=== PATIENT | female | born 1975 | race African-American/Black ===

== ENCOUNTER 2016-11-29 19:36 | Emergency (ER) | payer OTHER ==
[2016-11-29 19:52] VITALS: BP 147/84; PULSE 98; TEMP 98.7; BMI 35.7
[2016-11-29] MEDS ORDERED: ALBUTEROL SO4 2.5/IPRATROPIUM 0.5 INH SOL 3 ML VIAL.NEB. NEB ONE ×2 (21:43→21:45)
[2016-11-29] MEDS ORDERED: ACETAMINOPHEN 500 MG TABLET (FP) PO ONE (21:43)
[2016-11-29] MEDS ORDERED: predniSONE 20 MG TABLET (UD) PO ONE (21:43)
--- NOTE | 2016-11-29 21:43 | PDOC ---
History of Present Illness - General Chief Complaint: Respiratory Stated Complaint: ASTHMA Time Seen by Provider: 11/29/16 21:28 History Source: Patient Exam Limitations: No Limitations - History of Present Illness Initial Comments: 11/29/16 21:44 This is a 41yo woman with PMH asthma who presents today with nasal congestion, body aches, sore throat, chills and wheezing. She states she woke up on 11/28 with these symptoms that have progressed over the past 48 hours. She reports having a dry productive cough with white sputum. She denies nausea, vomiting, chest pain or SOB. Pain P- "my joints" Q- achy R- no radiation S- 10/07 T- upon waking in AM 11/28 Tob- current some day smoker with ETOH ETOH- rarely Illicits- denies All- Iodine and shellfish Timing/Duration: reports: other (2 days) Past History - Past Medical History Allergies/Adverse Reactions: Allergies Allergy/AdvReac Type Severity Reaction Status Date / Time iodine [Iodine] Allergy Verified 11/29/16 19:52 seafood Allergy Intermediate Itching Uncoded 11/29/16 19:52 Home Medications: Ambulatory Orders Albuterol Sulfate Inhaler - [Ventolin Hfa Inhaler -] 1 - 2 inh PO Q4H 11/29/16 Prednisone [Prednisone 50 MG TABLETS] 50 mg PO DAILY #4 tablet 11/29/16 Asthma: Yes - Surgical History Cholecystectomy: Yes - Reproductive History Dysfunctional Uterine Bleeding: No Ectopic : No Polycystic Ovaries: No - Immunization History Immunization Up to Date: Yes - Psycho/Social/Smoking Cessation Hx Anxiety: No Suicidal Ideation: No Smoking Status: No Smoking History: Current some day smoker Number of Cigarettes Smoked Daily: 7 Information on smoking cessation initiated: No Hx Alcohol Use: Yes Drug/Substance Use Hx: No Review of Systems - Review of Systems Able to Perform ROS?: Yes Is the patient limited Latvian proficient: No Constitutional: Yes: See HPI HEENTM: Yes: See HPI Respiratory: Yes: Cough, Wheezing. No: Shortness of Breath Cardiac (ROS): No: Symptoms Reported ABD/GI: No: Symptoms Reported : No: Symptoms Reported Musculoskeletal: Yes: Joint Pain Integumentary: No: Symptoms Reported Neurological: No: Symptoms reported *Physical Exam - Vital Signs Last Vital Signs Temp Pulse Resp BP Pulse Ox 98.7 F 98 H 18 147/84 99 11/29/16 19:50 11/29/16 19:50 11/29/16 19:50 11/29/16 19:50 11/29/16 19:50 - Physical Exam General Appearance: Yes: Appropriately Dressed. No: Apparent Distress HEENT: positive: EOMI, ANGELA, Normal ENT Inspection, TMs Normal, Pharyngeal Erythema, Nasal Congestion, Rhinorrhea. negative: Muffled/Hoarse voice, Tonsillar Exudate, Sinus Tenderness, Excessive drooling, Thrush Neck: positive: Trachea midline, Supple. negative: Tender Respiratory/Chest: positive: Wheezing (expiratory over all nugent). negative: Chest Tender, Respiratory Distress, Accessory Muscle Use Cardiovascular: positive: Regular Rhythm, Regular Rate, S1, S2. negative: Edema , JVD, Murmur Musculoskeletal: positive: Normal Inspection. negative: CVA Tenderness Extremity: positive: Normal Capillary Refill Integumentary: positive: Normal Color, Dry, Warm Neurologic: positive: chronometer repairer II-XII NML intact, Fully Oriented, Alert, Normal Mood/ Affect, Normal Response, Motor Strength 5/5 Medical Decision Making - Medical Decision Making 11/29/16 21:48 A: This is a 41yo woman with PMH asthma who presents today with nasal congestion, body aches, sore throat, chills and wheezing. She states she woke up on 11/28 with these symptoms that have progressed over the past 48 hours. She reports having a dry productive cough with white sputum. She denies nausea, vomiting, chest pain or SOB. Expiuratory wheezes over all lung nugent. Speaking in full sentences. (-) drooling. No h/o ETT. Oropharynx with mild erythema to tonsillar pilars. No exudate present. No cervical lymphadenopathy. TM's concepcion with normal light reflex. No TTP over sinuses. P: Viral pharyngitis vs URI - duonebs - Tylenol 1g now - Prednisone 60mg now - reassess after nebs 11/29/16 22:33 Pt feels better and is requesting discharge. *DC/Admit/Observation/Transfer Diagnosis at time of Disposition: Upper respiratory infection Qualifiers: URI type: unspecified viral URI Qualified Code(s): J06.9 - Acute upper respiratory infection, unspecified; B97.89 - Other viral agents as the cause of diseases classified elsewhere - Discharge Dispostion Disposition: HOME Condition at time of disposition: Stable Admit: No - Prescriptions Prescriptions: Prednisone [Prednisone 50 MG TABLETS] 50 mg PO DAILY #4 tablet - Referrals Referrals: STAFF,NOT ON [Primary Care Provider] - - Patient Instructions Printed Discharge Instructions: DI for Viral Upper Respiratory Infection -- Adult - Post Discharge Activity Work/School Note: Back to Work
[2016-11-29] MEDS ORDERED: predniSONE 20 MG TABLET (UD) ONE (21:45)
[2016-11-29] MEDS ORDERED: ACETAMINOPHEN 500 MG TABLET (FP) ONE (21:45)
== END 2016-11-29 22:39 | disposition home or self-care (01) ==
LOC: JERFT 19:36
PROC: 3E0F7GC Introduction of Other Therapeutic Substance into Respiratory Tract, Via Natural or Artificial Opening (ICD-10-PCS; principal; 2016-11-29)
DX: J06.9 Acute upper respiratory infection, unspecified (principal); B97.89 Other viral agents as the cause of diseases classified elsewhere
CPT/HCPCS: 99281-25

== ENCOUNTER 2017-03-30 14:32 | Emergency (ER) | payer OTHER ==
[2017-03-30 14:45] VITALS: BP 133/76; PULSE 109; TEMP 98.2; BMI 35.9
--- NOTE | 2017-03-30 15:05 | PDOC ---
History of Present Illness - General Chief Complaint: Pain Stated Complaint: LEG/ARM SWELLING Time Seen by Provider: 03/30/17 15:05 History Source: Patient Exam Limitations: No Limitations - History of Present Illness Initial Comments: 03/30/17 15:05 CHIEF COMPLAINT: Left knee and calf pain which started . HISTORY OF PRESENT ILLNESS: Patient is a 41-year-old female, no significant medical history currently on no medication, presents emergency Department with pain to the left calf and pain to the left knee. " Area feels big and swollen" steady gait, no limping. Patient concerned she may have a clot in her left leg. Patient denies prolonged sitting, no use of hormonal therapy, no recent travel. Denies any injury however reports working on for more than 16 hours. REVIEW OF SYSTEMS: GENERAL: Afebrile, A&O x3 RESPIRATORY: No cough, wheezing, or hemoptysis. CARDIAC: No CP or SOB MUSCULOSKELETAL: Pain to [ right] [anterior] and [posterior] knee SKIN : No erythema, no edema, no bruising, no deformity. NEUROLOGICAL: Denies any numbness or tingling. PHYSICAL EXAM: GENERAL: The patient is awake, alert, and fully oriented, in no acute distress. HEAD: Normal with no signs of trauma. RESPIRATORY: Lungs clear bilaterally no rhonchi, rales, or wheezes CARDIAC: S1-S2 audible, no murmur rub or gallop EXTREMITIES: Good range of motion to left knee with suprapatellar pain, [no] fluid appreciated, no bulge sign. No pain to superior or inferior patella. Negative drop test. Negative posterior leg test. No joint laxity noted, no ecchymosis, no deformity, no abrasions ,no edema. +3 popliteal pulse. Pain to left calf patient states area is edematous however there is no erythema, area is soft mildly warm positive Homans MUSCULOSKELETAL: No spinal point tenderness. SKIN: Warm, Dry, normal turgor, no erythema, [no] edema no bruising. 03/30/17 15:15 Past History - Past Medical History Allergies/Adverse Reactions: Allergies Allergy/AdvReac Type Severity Reaction Status Date / Time iodine [Iodine] Allergy Verified 03/30/17 14:45 seafood Allergy Intermediate Itching Uncoded 03/30/17 14:45 Home Medications: Ambulatory Orders NK [No Known Home Medication] 03/30/17 Asthma: Yes COPD: No - Surgical History Cholecystectomy: Yes - Reproductive History Dysfunctional Uterine Bleeding: No Ectopic : No Polycystic Ovaries: No - Immunization History Immunization Up to Date: Yes - Suicide/Smoking/Psychosocial Hx Smoking Status: No Smoking History: Current every day smoker Number of Cigarettes Smoked Daily: 10 Information on smoking cessation initiated: No Hx Alcohol Use: Yes (SOCIAL WINE) Drug/Substance Use Hx: No Substance Use Type: None *Physical Exam - Vital Signs Last Vital Signs Temp Pulse Resp BP Pulse Ox 98.2 F 109 H 20 133/76 97 03/30/17 14:41 03/30/17 14:41 03/30/17 14:41 03/30/17 14:41 03/30/17 14:41 Medical Decision Making - Medical Decision Making 04/01/17 13:08 /P: Patient here for evaluation of what she feels is swelling to left arm and left knee, there is no swelling noted upon physical examination I sent patient to x-ray all were negative Motrin for pain, patient with probable joint effusion to left knee ultrasound of left calf is negative for DVT patient is with no risk factors. I have advised patient to follow-up with orthopedics, [facility] for pain. I discussed the physical exam findings, ancillary test results and final diagnoses with the patient. I answered all of the patient's questions. The patient was satisfied with the care received and felt comfortable with the discharge plan and treatment plan. The patient will call to arrange follow-up and will return to the Emergency Department with any new, persistent or worsening symptoms. *DC/Admit/Observation/Transfer Diagnosis at time of Disposition: Leg pain Qualifiers: Laterality: left Qualified Code(s): M79.605 - Pain in left leg - Discharge Dispostion Disposition: HOME Condition at time of disposition: Stable Admit: No - Referrals Referrals: Víctor Pulliam MD [Staff Physician] - - Patient Instructions Additional Instructions: Motrin for pain. Follow up with ortho if pain persists. - Post Discharge Activity Forms/Work/School Notes: Back to Work
== END 2017-03-30 17:26 | disposition home or self-care (01) ==
LOC: JERFT 14:32
DX: M79.605 Pain in left leg (principal)
CPT/HCPCS: 73562-TC-LT; 84703; 93971-TC; 99281-25

== ENCOUNTER 2017-04-22 16:33 | Emergency (ER) | payer OTHER ==
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
[2017-04-22 16:37] VITALS: BP 124/78; PULSE 90; TEMP 97.9; BMI 33.0
[2017-04-22] MEDS ORDERED: KETOROLAC TROMETHAMINE 60 MG/2 ML VIAL IM ONE (17:40)
[2017-04-22] MEDS ORDERED: CYCLOBENZAPRINE HCL 10 MG TABLET (FP) PO ONE (17:40)
[2017-04-22] MEDS ORDERED: KETOROLAC TROMETHAMINE 60 MG/2 ML VIAL ONE (17:46)
[2017-04-22] MEDS ORDERED: CYCLOBENZAPRINE HCL 10 MG TABLET (FP) ONE (17:46)
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
== END 2017-04-22 18:15 | disposition home or self-care (01) ==
LOC: JERFT 16:33
PROC: 3E0233Z Introduction of Anti-inflammatory into Muscle, Percutaneous Approach (ICD-10-PCS; principal; 2017-04-22)
DX: S16.1XXA Strain of muscle, fascia and tendon at neck level, initial encounter (principal); V49.59XA Passenger injured in collision with other motor vehicles in traffic accident, initial encounter; Y92.488 Other paved roadways as the place of occurrence of the external cause; Y93.89 Activity, other specified; Y99.8 Other external cause status
CPT/HCPCS: 99281-25

== ENCOUNTER 2018-01-30 15:32 | Inpatient (IN) | payer OTHER ==
--- NOTE | 2018-01-30 16:34 | PDOC ---
Rapid Medical Evaluation Chief Complaint: Wound Time Seen by Provider: 01/30/18 16:30 Medical Evaluation: Allergies Allergy/AdvReac Type Severity Reaction Status Date / Time iodine [Iodine] Allergy Verified 04/22/17 16:38 shellfish derived Allergy Verified 06/27/17 02:32 seafood Allergy Intermediate Itching Uncoded 04/22/17 16:38 01/30/18 16:31 c/o abscess to left side of chin x 2 days. 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 patient reports that she removed a hair from chin prior to the swelling Pe: patient alert ox3. swelling abscess to left chin A: abscess P: patient to the ER further management 01/30/18 16:34 Discharge Disposition - Diagnosis Abscess - Referrals - Patient Instructions - Post Discharge Activity
[2018-01-30 17:28] LABS: BASO % 0.6 % (0-2.0); EOS % 3.7 % (0-4.5); HEMATOCRIT 40.1 % (32.4-45.2); HEMOGLOBIN 13.6 GM/dL (10.7-15.3); MCH 27.4 pg (25.7-33.7); MEAN CELL VOLUME 80.7 fl (80-96); MONO % 4.7 % (3.8-10.2); PLATELET COUNT 195 K/MM3 (134-434); RBC 4.98 M/mm3 (3.60-5.2); RDW 14.8 % (11.6-15.6)
--- NOTE | 2018-01-30 17:50 | PDOC ---
Attending Attestation - HPI HPI: 01/30/18 18:45 The patient is a 43-year-old female with past medical history significant for asthma was sent to the emergency department by [employer] for an evaluation for an abscess. The patient presents with an abscess to the L. mandibular region that presented about 24 hours prior, after plucking a hair from the area. - Medical Decision Making 01/30/18 18:45 Documentation prepared by Conchis Maldonado, acting as medical anthropologist for Sampson Aguirre MD. <Conchis Maldonado - Last Filed: 01/30/18 18:45> - Resident Resident Name: Yaya Horn - ED Attending Attestation I have performed the following: I have examined & evaluated the patient, The case was reviewed & discussed with the resident, I agree w/resident's findings & plan, Exceptions are as noted - Physicial Exam PE: 01/30/18 19:25 Patient is awake and alert, well-appearing, afebrile, in no distress Normocephalic, atraumatic PERRLA, EOMI No dental malocclusion, no evidence of Rickie's angina; +4-5 cm area of erythema and induration to the left submental space with a central nidus, actively draining purulent material Neck is supple, there is no goiter; there is no cervical lymphadenopathy CTA RRR - Medical Decision Making 01/30/18 19:29 Patient is a 42-year-old female who presents with signs and symptoms of acute facial cellulitis with an abscess. Will obtain CT of facial bones to evaluate for depth of involvement, we'll cover with IV clindamycin. Will admit for ENT incision and drainage. <Sampson Aguirre - Last Filed: 01/30/18 19:30>
--- NOTE | 2018-01-30 18:07 | PDOC ---
History of Present Illness - General Chief Complaint: Wound Stated Complaint: SENT BY PCP Time Seen by Provider: 01/30/18 16:30 History Source: Patient Exam Limitations: No Limitations - History of Present Illness Initial Comments: 01/30/18 17:45 Patient is a 42F with history of asthma and multiple abscesses (involvement under breast and armpit) here today complaining of an abscess to her neck. 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 Patient denies fevers, chills, nausea, vomiting. Patient states that her voice sounds different to her. Denies shortness of breath and difficulty breathing. Denies tooth and mouth pain. Denies headache. Past History - Past Medical History Allergies/Adverse Reactions: Allergies Allergy/AdvReac Type Severity Reaction Status Date / Time iodine [Iodine] Allergy Verified 01/30/18 16:44 shellfish derived Allergy Verified 01/30/18 16:44 seafood Allergy Intermediate Itching Uncoded 01/30/18 16:44 Home Medications: Ambulatory Orders Albuterol Sulfate [Proventil HFA Inhaler -] 1 - 2 inh PO QID PRN 01/30/18 Asthma: Yes COPD: No - Surgical History Cholecystectomy: Yes - Reproductive History Dysfunctional Uterine Bleeding: No Ectopic : No Polycystic Ovaries: No - Immunization History Immunization Up to Date: Yes - Suicide/Smoking/Psychosocial Hx Smoking Status: No Smoking History: Current some day smoker Number of Cigarettes Smoked Daily: 2 Information on smoking cessation initiated: No 'Breaking Loose' booklet given: 04/22/17 Hx Alcohol Use: No Drug/Substance Use Hx: No Substance Use Type: None Review of Systems - Review of Systems Comments:: 01/30/18 18:22 GENERAL/CONSTITUTIONAL: No fever or chills. No weakness. HEAD, EYES, EARS, NOSE AND THROAT: No change in vision. No sore throat. CARDIOVASCULAR: No chest pain or shortness of breath RESPIRATORY: No cough, wheezing, or hemoptysis. GASTROINTESTINAL: No nausea, vomiting, diarrhea or constipation. GENITOURINARY: No dysuria, frequency, or change in urination. MUSCULOSKELETAL: No joint or muscle swelling or pain. No neck or back pain. SKIN: No rash NEUROLOGIC: No headache, vertigo, loss of consciousness, or change in strength/ sensation. ENDOCRINE: No increased thirst. No abnormal weight change HEMATOLOGIC/LYMPHATIC: No anemia, easy bleeding, or history of blood clots. ALLERGIC/IMMUNOLOGIC: No hives or skin allergy. *Physical Exam - Vital Signs Last Vital Signs Temp Pulse Resp BP Pulse Ox 98.2 F 94 H 18 121/67 99 01/30/18 16:33 01/30/18 16:33 01/30/18 16:33 01/30/18 16:33 01/30/18 16:33 - Physical Exam Comments: 01/30/18 18:23 GENERAL: Awake, alert, and fully oriented, in no acute distress HEAD: No signs of trauma, normocephalic, atraumatic EYES: PERRLA, EOMI, sclera anicteric, conjunctiva clear ENT: Auricles normal inspection, hearing grossly normal, nares patent, oropharynx clear without exudates. Moist mucosa. 6x3cm area of fluctuance with surrounding erythema, pus discharge. NECK: Normal ROM, supple, no lymphadenopathy, JVD, or masses LUNGS: No distress, speaks full sentences, clear to auscultation bilaterally HEART: Regular rate and rhythm, normal S1 and S2, no murmurs, rubs or gallops, peripheral pulses normal and equal bilaterally. ABDOMEN: Soft, nontender, normoactive bowel sounds. No guarding, no rebound. No masses EXTREMITIES: Normal inspection, Normal range of motion, no edema. No clubbing or cyanosis. NEUROLOGICAL: Cranial nerves II through XII grossly intact. Normal speech, normal gait, no focal sensorimotor deficits SKIN: Warm, Dry, normal turgor, no rashes or lesions noted. ED Treatment Course - LABORATORY CBC & Chemistry Diagram: 01/30/18 17:10 01/30/18 17:10 - ADDITIONAL ORDERS Additional order review: 01/30/18 17:10 RBC 4.98 MCV 80.7 MCHC 34.0 RDW 14.8 MPV 9.0 Neutrophils % 61.0 Lymphocytes % 30.0 Monocytes % 4.7 Eosinophils % 3.7 Basophils % 0.6 - RADIOLOGY Radiology Studies Ordered: Category Date Time Status SOFT TISSUE NECK CT WITH CONTR [CT] Stat CT Scan 01/30/18 17:36 Ordered Medical Decision Making - Medical Decision Making 01/30/18 18:25 Patient is 42F with history of asthma and multiple abscesses here today with abscess to neck. Vitals normal and stable. Will do CT to establish extent. Airway currently intact. Will do cbc, cmp, serum preg, blood culture, wound culture. Will cover with clinda, likely admit. 01/30/18 18:33 CBC, CMP reassuring. Preg pending. 01/30/18 19:36 Patient's iodine allergy is to betadine, no history of a reaction to CT contrast. Safe for CT contrast. 01/30/18 19:56 Laboratory Tests 01/30/18 01/30/18 01/30/18 17:10 17:10 17:58 WBC 10.0 Hgb 13.6 Plt Count 195 BUN 8 Creatinine 0.8 Serum , Qual Negative CBC normal. CMP reassuring. Serum . 01/30/18 21:45 CT shows 1.5cm superficial likely abscess with reactive adjacent lymph nodes. Call out to ENT. Will admit to obs until ENT eval. Do not feel comfortable cutting into neck due to adjacent structures. 01/30/18 21:58 D/W Dr Pulido, will see pt in clinic tomorrow at 9am at [address] as specialized tools are available in clinic. Will admit for IV antibiotics and observation. 01/30/18 22:[address] Yang to Dr Gar service. *DC/Admit/Observation/Transfer Diagnosis at time of Disposition: Neck abscess - Discharge Dispostion Condition at time of disposition: Stable Decision to Admit order: Yes - Referrals Referrals: Jerson Lowery MD [Primary Care Provider] - - Patient Instructions - Post Discharge Activity
[2018-01-30 18:14] LABS: ALBUMIN 3.6 g/dl (3.4-5.0); ALK PHOS 85 U/L (45-117); ANION GAP 8 MMOL/L (8-16); BILIRUBIN,TOTAL 0.3 mg/dL (0.2-1); BLOOD UREA NITROGEN 8 mg/dL (7-18); CALCIUM 8.8 mg/dL (8.5-10.1); CHLORIDE 105 mmol/L (98-107); CO2 26 mmol/L (21-32); CREATININE 0.8 mg/dL (0.55-1.3); GLUCOSE,RANDOM 129 mg/dL (74-106); POTASSIUM 3.5 mmol/L (3.5-5.1); SGOT/AST 8 U/L (15-37); SGPT/ALT 15 U/L (13-61); SODIUM 140 mmol/L (136-145); TOT PROT 6.8 g/dl (6.4-8.2)
[2018-01-30] MEDS ORDERED: CLINDAMYCIN 600MG PREMIX IVPB 600 MG/50 ML BAG IVPB ONE ×2 (18:18→18:20)
--- NOTE | 2018-01-30 22:36 | PN ---
Teaching Attending Note Name of Resident: Yohan Yang ATTENDING PHYSICIAN STATEMENT I saw and evaluated the patient. I reviewed the resident's note and discussed the case with the resident. I agree with the resident's findings and plan as documented. SUBJECTIVE: Seen and examined with resident; please see their note for further historical details. This is a patient with a PMH of DM, Asthma, Smoker, R-breast abscess ( 2016, grew EF, corynebacterium). She has a 2 day history of a painful 1x1cm abscess on her chin that is growing and painful with purulent drainage. Looks like her prior abscesses. She is tolerating the pain. She was worried as it was growing and draining so she went to the ER. Non-septic appearing, CT results noted. She was incidentally found to have an enlarged thyroid on US; no history of thyroid issues. She endorses 1 month of strange sensation when swallowing that she says makes it somewhat difficult to do meals, but she hasn' t had any alysia dyshagia limiting PO intake or odynophagia. 10 sys ROS done and is negative aside from HPI PMH and PSH per chart FH asked and noncontributory Social history OBJECTIVE: VSS, labs and imaging reviewed Pleasant demeanor, NAD, resting comfortably in bed. Doesn't appear septic. 1x1cm abscess with some purulent drainage on her chin with surrounding minor cellulitis. Fluctuant. No other facial abscess felt Trachea midline, some minor LN, full thyroid RRR s1/2 no mgr Lungs CTAB with sym expansion CN2-12 grossly intact without any FND CT shows 1.3cm subcutaneous abscess with luminal debris in the L-submental region with incidental finding of thyromegaly No WBC, chemistry normal, coags normal, RPR negative, negative HCG. ESR/CRP pending ASSESSMENT AND PLAN: Ms. Hernandez is a 42 y/o female presenting with L-submental abscess; she will be placed on empiric tx and require likely an I&D. 1) L-Submental Abscess -Placing on empiric vancomycin with pharmacy to dose; monitor renal function and consult ID per policy. Will reach out to Dr. Lerner. -Monitor for spread vs. improvement -Consult surgical services for drainage. -Follow wound and blood cultures, check ESR/CRP. The organisms she grew out 2 years ago are covered by this, unsure if they would be potentially involved now. 2) Thyromegaly -Incidental finding on CT; no dysphagia or dysphonia and is essentially asymptomatic -Will check TSH; US recommended as outpatient. 3) Diabetes Mellitus -SSI while inpatient, check A1c 4) H/O Asthma -Not in exacerbation 5) 1 month of dysphagia -Check barium swallow; likely 2/2 the thyroid abnormalities (the abscess only present for 2 days) Full Code
[2018-01-30] MEDS ORDERED: VANCOMYCIN 1,000 MG in DEXTROSE 5%-WATER - 250 ML IVPB SCH (22:45)
--- NOTE | 2018-01-30 22:48 | HP ---
CHIEF COMPLAINT: facial cellulites with abscess PCP:Dr.LeeMorgan hilliard HISTORY OF PRESENT ILLNESS: 42 year old obese female with pmx of pre diabetic , multiple abscess , presented to Ed with 2 days history of facial sub mandibular nodule юлия size , worsen last night and extended , associated with erythema and tenderness was sent to Ed by her center line cutter operator . pt had similar symptoms in the past beneath her breast that was treated with abx but dont remeber the name. pt denies any fever, chills, N/V/D/C but report some difficulty in swallowing and has been trying to loose weight. pt had her flue shot last . and she had flue symptoms begining of December ROS: denies any chest pain , palpitation , sob , abdominal pain or urinary symptoms. ER course was notable for: (1)cbc, bmp (2)US soft tissue (3)Abx Recent Travel: denies PAST MEDICAL HISTORY: none PAST SURGICAL HISTORY: Tubal ligation, Cholecystectomy Social History: Smokin/2 PPD 15 years Alcohol:socially Drugs: denies Family History: Allergies iodine [Iodine] Allergy (Verified 01/30/18 16:44) shellfish derived Allergy (Verified 01/30/18 16:44) seafood Allergy (Intermediate, Uncoded 01/30/18 16:44) Itching HOME MEDICATIONS: Home Medications Medication Instructions Recorded Albuterol Sulfate [Proventil HFA 1 - 2 inh PO QID PRN 01/30/18 Inhaler -] REVIEW OF SYSTEMS denies any other symptoms PHYSICAL EXAMINATION Vital Signs - 24 hr 01/30/18 01/30/18 01/30/18 16:33 20:30 21:43 Temperature 98.2 F 98.3 F 98.1 F Pulse Rate 94 H Pulse Rate [ 84 78 Right Radial] Respiratory 18 18 17 Rate Blood Pressure 121/67 Blood Pressure 130/78 137/78 [Left Arm] O2 Sat by Pulse 99 98 98 Oximetry (%) GENERAL:AAOx3 in NAD HEAD: Normal with no signs of trauma. EYES: ELSA, EOMI , sclera anicteric, conjunctiva clear. EARS, NOSE, THROAT: Ears normal, nares patent, oropharynx clear without exudates. Moist mucous membranes. NECK: Normal range of motion, supple , sub mandibular abscess 2x2 cm with erythema LUNGS:CTA B/L ,No wheezes, and no crackles. HEART:RRR, normal S1 and S2 without murmur, rub or gallop. ABDOMEN:Obese, Soft,ND, NT , normoactive bowel sounds, no guarding, no rebound , no masses. LOWER EXTREMITIES: 2+ pulses, warm, well-perfused. No calf tenderness. No peripheral edema. NEUROLOGICAL: no focal deficit , Normal speech. PSYCHIATRIC: Cooperative. Good eye contact. Appropriate mood and affect. SKIN: Warm, dry, normal turgor, Laboratory Results - last 24 hr 01/30/18 01/30/18 01/30/18 17:10 17:10 17:58 WBC 10.0 RBC 4.98 Hgb 13.6 Hct 40.1 MCV 80.7 MCH 27.4 MCHC 34.0 RDW 14.8 Plt Count 195 MPV 9.0 Absolute Neuts (auto) 6.1 Neutrophils % 61.0 Lymphocytes % 30.0 Monocytes % 4.7 Eosinophils % 3.7 Basophils % 0.6 Nucleated RBC % 0 Sodium 140 Potassium 3.5 Chloride 105 Carbon Dioxide 26 Anion Gap 8 BUN 8 Creatinine 0.8 Creat Clearance w eGFR > 60 Random Glucose 129 H Calcium 8.8 Total Bilirubin 0.3 AST 8 L ALT 15 Alkaline Phosphatase 85 Total Protein 6.8 Albumin 3.6 Serum , Qual Negative CBC, BMP 01/30/18 17:10 01/30/18 17:10 ASSESSMENT/PLAN: 42 year old male with no pmhx was sent to the ED by her center line cutter operator due to worsening cellulitis and facial abscess. #Facial cellulitis with an Abscess submandibular * worsening in size and tenderness * Clindamycine in ED , will cont with vanco * Hgb A1c * TSH * Blood cx * wound cx * ESR WNL , CRP elevated * cbc . bmp in AM * surgery consult * ID consult Dr Fowler * MRSA screen #Thyromegaly * Incidental finding on CT; no dysphagia or dysphonia and is essentially asymptomatic * Will check TSH; US recommended as outpatient. #pre Diabetes * ISS while inpatient, * check A1c # Astma , stable no need for treatement # dysphagia for solid might be due thyromegaly * speech and swallow and barium swallow # FEN * F: no standing fluids * E: WNL * N: regular diet # proph * DVts : SCds * GI: No proph is needed. # Dispo : * admit to observation Visit type - Emergency Visit Emergency Visit: Yes ED Registration Date: 01/30/18 Care time: The patient presented to the Emergency Department on the above date and was hospitalized for further evaluation of their emergent condition. - New Patient This patient is new to me today: Yes Date on this admission: 01/30/18 - Critical Care Critical Care patient: No
[2018-01-30] MEDS ORDERED: VANCOMYCIN 1 GRAM (PRE-DOCKED) 1,000 MG/250 ML BAG IVPB ONE ×2 (23:00→23:09)
[2018-01-31 02:52] VITALS: BMI 35.4
[2018-01-31] MEDS: INSULIN SLIDING SCALE (NOVOLOG) 1 VIAL SQ SCH ×4 (06:14→23:21)
[2018-01-31 08:01] LABS: BASO % 0.4 % (0-2.0); EOS % 4.4 % (0-4.5); HEMOGLOBIN 13.2 GM/dL (10.7-15.3); LYMPH % 37.6 % (8-40); MCH 27.5 pg (25.7-33.7); MCHC 33.8 g/dl (32.0-36.0); MEAN CELL VOLUME 81.2 fl (80-96); MEAN PLT VOLUME 9.4 fl (7.5-11.1); MONO % 4.9 % (3.8-10.2); NEUT % 52.7 % (42.8-82.8); PLATELET COUNT 178 K/MM3 (134-434); RBC 4.81 M/mm3 (3.60-5.2); RDW 14.6 % (11.6-15.6); WHITE BLOOD COUNT 7.7 K/mm3 (4.0-10.0)
--- NOTE | 2018-01-31 08:09 | PN ---
Progress Note (short form) - Note Progress Note: c/o pain and swelling on the chin. plucked a hair a few days ago then started feeling the pain and swelling. denies Cp, SOB, fever, chills, night sweats, N/v/ C/D. has had a breast abscess in the past which was drained. did have a mammogram which she reports as negative also reports difficulty swallowing for the past month. states has a fullness sensation. reports eating less but states she has been working 3 jobs and under a lot of stress. it is not related to liquid vs solids, hots vs colds. able to swallow and has no assoc weight loss. Current Medications Generic Name Dose Route Start Last Admin Trade Name Freq PRN Reason Stop Dose Admin Vancomycin HCl 1,000 mg/ 250 mls @ 166.667 mls/hr 01/30/18 22:45 Dextrose IVPB Q12H DARINEL Protocol Insulin Aspart 1 vial 01/31/18 07:00 01/31/18 06:14 Novolog Vial Sliding Scale - SQ Not Given ACHS DARINEL Protocol Last Vital Signs Temp Pulse Resp BP Pulse Ox 98.2 F 67 17 121/68 98 01/31/18 02:48 01/31/18 02:48 01/31/18 02:57 01/31/18 02:48 01/31/18 02:57 General NAD HEENT L submental 1cm abscess with copious yellow purulent drainage. drains with pressure. enlarged thyroid, midline, that moves on degluttation. no nodules appreciated, not tender. no LN appreciated, no oral plaques, no oral ulcers or lesions. mallenpati 4 Breast firmness appreciated under the L breast CV S1 S2 RRR no murmur/rub/gallop Lungs CTA B/L no wheezing/rales/rhonchi CBCD WBC 7.7 K/mm3 (4.0-10.0) 01/31/18 06:40 RBC 4.81 M/mm3 (3.60-5.2) 01/31/18 06:40 Hgb 13.2 GM/dL (10.7-15.3) 01/31/18 06:40 Hct 39.0 % (32.4-45.2) 01/31/18 06:40 MCV 81.2 fl (80-96) 01/31/18 06:40 MCHC 33.8 g/dl (32.0-36.0) 01/31/18 06:40 RDW 14.6 % (11.6-15.6) 01/31/18 06:40 Plt Count 178 K/MM3 (134-434) 01/31/18 06:40 MPV 9.4 fl (7.5-11.1) 01/31/18 06:40 CMP Sodium 142 mmol/L (136-145) 01/31/18 06:40 Potassium 3.7 mmol/L (3.5-5.1) 01/31/18 06:40 Chloride 106 mmol/L (98-107) 01/31/18 06:40 Carbon Dioxide 25 mmol/L (21-32) 01/31/18 06:40 Anion Gap 10 MMOL/L (8-16) 01/31/18 06:40 BUN 8 mg/dL (7-18) 01/31/18 06:40 Creatinine 0.7 mg/dL (0.55-1.3) 01/31/18 06:40 Creat Clearance w eGFR > 60 (>60) 01/31/18 06:40 Random Glucose 88 mg/dL (74-106) 01/31/18 06:40 Calcium 8.2 mg/dL (8.5-10.1) L 01/31/18 06:40 Total Bilirubin 0.4 mg/dL (0.2-1) 01/31/18 06:40 AST 6 U/L (15-37) L 01/31/18 06:40 ALT 13 U/L (13-61) 01/31/18 06:40 Alkaline Phosphatase 78 U/L (45-117) 01/31/18 06:40 Total Protein 6.2 g/dl (6.4-8.2) L 01/31/18 06:40 Albumin 3.3 g/dl (3.4-5.0) L 01/31/18 06:40 A/P 42yo F with PMH of Asthma, Smoker, R-breast abscess (2016, grew EF, corynebacterium) presented to the ER with chin abscess for 2 days 1. Submental abscess- seen on CT with 1.3cm abscess. will need to be drained. started on vanco in the ER. ID and Surgery consulted. will request surgeon to evaluate breast as well. f/u Cx 2. Enlarged thyroid- TSH WNL. will need to have soft tissue u/s as outpatient and follow up with endocrine for further workup as outpatient. 3. fullness on swallowing- not painful. do not believe this is related to abscess as it preceeded its formation. could be related to enlarged thyroid that needs to be further investigated as outpatient. if believed not to be related could benefit from esophogram for esophageal dysmotility issues 4. charts documents DM however A1c 6. would benefit from dietary and lifestyle modifications. will d/c BGM 5. asthma- stable 6. DVT ppx- EAM 7. spoke with present at bedside. all questions answered. verbalized understanding of plan. expressed desire of going home today. informed her it would be preferred to monitor for cx report however will wait for surgeons evaluation. Visit type - Emergency Visit Emergency Visit: Yes ED Registration Date: 01/30/18 Care time: The patient presented to the Emergency Department on the above date and was hospitalized for further evaluation of their emergent condition. - New Patient This patient is new to me today: Yes Date on this admission: 01/31/18 - Critical Care Critical Care patient: No - Discharge Referral Referred to [facility] Med P.C.: No
[2018-01-31 08:42] LABS: ALBUMIN 3.3 g/dl (3.4-5.0); ALK PHOS 78 U/L (45-117); ANION GAP 10 MMOL/L (8-16); BILIRUBIN,TOTAL 0.4 mg/dL (0.2-1); BLOOD UREA NITROGEN 8 mg/dL (7-18); CALCIUM 8.2 mg/dL (8.5-10.1); CHLORIDE 106 mmol/L (98-107); CO2 25 mmol/L (21-32); CREATININE 0.7 mg/dL (0.55-1.3); GLUCOSE,RANDOM 88 mg/dL (74-106); MAGNESIUM 2.2 mg/dL (1.8-2.4); POTASSIUM 3.7 mmol/L (3.5-5.1); SGOT/AST 6 U/L (15-37); SGPT/ALT 13 U/L (13-61); SODIUM 142 mmol/L (136-145); TOT PROT 6.2 g/dl (6.4-8.2)
[2018-01-31 08:56] LABS: INR 1.24 (0.83-1.09); PROTHROMBIN TIME (PATIENT) 14.7 SEC (9.7-13.0)
--- NOTE | 2018-01-31 09:23 | CON.ID ---
Consult Consult Specialty:: infectious diseases Referred by:: Reason for Consultation:: abscess of the chin under left side - History of Present Illness Chief Complaint: swelling left side of the face. abscess under the chin History of Present Illness: The patient is a 43-year-old female with past medical history significant for asthma ,obesity admitted to the hospital because of abscess under the left mandible . According to the patient she plucked her hair and in a day developed a small swelling and abscess which increased and then she mentions that it went below on her neck,the swelling did not travel her face patient also mentions that she gets swelling under her breasts ,currently no swelling under the breast - History Source History Provided By: Patient Limitations to Obtaining History: No Limitations - Past Medical History ...LMP: 01/27/18 ...: No - Alcohol/Substance Use Hx Alcohol Use: Yes (socially) - Smoking History Smoking history: Current every day smoker Have you smoked in the past 12 months: Yes Aproximately how many cigarettes per day: 10 Home Medications - Allergies Allergies/Adverse Reactions: Allergies Allergy/AdvReac Type Severity Reaction Status Date / Time iodine [Iodine] Allergy Verified 01/30/18 16:44 shellfish derived Allergy Verified 01/30/18 16:44 seafood Allergy Intermediate Itching Uncoded 01/30/18 16:44 - Home Medications Home Medications: Ambulatory Orders Albuterol Sulfate [Proventil HFA Inhaler -] 1 - 2 inh PO QID PRN 01/30/18 Review of Systems - Review of Systems Constitutional: reports: No Symptoms Eyes: reports: No Symptoms HENT: reports: No Symptoms Neck: reports: Other Cardiovascular: reports: No Symptoms Respiratory: reports: No Symptoms Gastrointestinal: reports: No Symptoms Genitourinary: reports: No Symptoms Musculoskeletal: reports: No Symptoms Integumentary: reports: Erythema Neurological: reports: No Symptoms Endocrine: reports: No Symptoms Hematology/Lymphatic: reports: No Symptoms Psychiatric: reports: No Symptoms Physical Exam Vital Signs: Vital Signs Temperature 98.2 F 01/31/18 02:48 Pulse Rate 67 01/31/18 02:48 Respiratory Rate 17 01/31/18 02:57 Blood Pressure 121/68 01/31/18 02:48 O2 Sat by Pulse Oximetry (%) 98 01/31/18 02:57 Constitutional: Yes: Well Nourished, No Distress, Calm, Obese HENT: Yes: Atraumatic, Other (abscess below left mandible) Neck: Yes: Supple, Other (probably goitre) Cardiovascular: Yes: Regular Rate and Rhythm Respiratory: Yes: Regular, CTA Bilaterally Gastrointestinal: Yes: Normal Bowel Sounds, Soft Musculoskeletal: Yes: WNL Extremities: Yes: WNL Wound/Incision: Yes: Dressing Removed, Other (wound and abscess noted) Neurological: Yes: Alert, Oriented Psychiatric: Yes: Alert, Oriented Labs: CBC, BMP 01/31/18 06:40 01/31/18 06:40 Imaging - Results Cat Scan: Report Reviewed, Image Reviewed Assessment/Plan this patient coming with abscess below the left mandible ,now with slough still present patient is currently stable cx have been send and are pending looking at the abscess the abscess looks like it is superficial .patient was given abx abscess --face left sub mental region obesity h/o of breast abscess plan i will start patient on combination of oral abx surgery to debride the wound wound care rest as per the team await for cx reports
--- NOTE | 2018-01-31 10:27 | CONSULT ---
- Consultation REQUESTING PROVIDER: Ayesha DARBY CONSULT REQUEST: We have been asked to surgically evaluate this patient for evaluation and management of an ABSSSI of the face PCP:Jackie Mustafa HISTORY OF PRESENT ILLNESS: 42 y/o A/A/F seen by a programs manager yesterday for pain and swelling and d/c of an area of the left chin; she was told to go to the ER for further evaluation; she was seen and evaluated in the ER and admitted ; the area in question was traumatized by the patient plucking out a hair from the area; she has a h/o of other ABSSSI's in the past. PMHx: none PSHx: none Home Medications Medication Instructions Recorded Albuterol Sulfate [Proventil HFA 1 - 2 inh PO QID PRN 01/30/18 Inhaler -] Allergies Allergy/AdvReac Type Severity Reaction Status Date / Time iodine [Iodine] Allergy Verified 01/30/18 16:44 shellfish derived Allergy Verified 01/30/18 16:44 seafood Allergy Intermediate Itching Uncoded 01/30/18 16:44 REVIEW OF SYSTEMS: CONSTITUTIONAL: Absent: fever, chills, diaphoresis, generalized weakness, malaise, loss of appetite, weight change CARDIOVASCULAR: Absent: chest pain, syncope, palpitations, irregular heart rate, lightheadedness , peripheral edema RESPIRATORY: Absent: cough, shortness of breath, dyspnea with exertion, wheezing, stridor, hemoptysis GASTROINTESTINAL: Absent: abdominal pain, abdominal distension, nausea, vomiting, diarrhea, constipation, melena, hematochezia GENITOURINARY: Absent: dysuria, frequency, urgency, hesitancy, hematuria, flank pain, genital pain MUSCULOSKELETAL: Absent: myalgia, arthralgia, joint swelling, back pain, neck pain SKIN: Present: skin issues HEMATOLOGIC/IMMUNOLOGIC: Absent: easy bleeding, easy bruising, lymphadenopathy NEUROLOGIC: Absent: headache, focal weakness, paresthesias, dizziness, unsteady gait, seizure, mental status changes, bladder or bowel incontinence PSYCHIATRIC: Absent: anxiety, depression, suicidal or homicidal ideation, hallucinations. PHYSICAL EXAM: GENERAL: Awake, alert, and fully oriented, in no acute distress. HEAD: Normal with no signs of trauma. EYES: sclera anicteric, conjunctiva clear. NECK: Normal ROM, supple without lymphadenopathy, JVD, or masses. ABDOMEN: Soft, nontender, not distended, normoactive bowel sounds, no guarding, no rebound, no masses. No organomegaly. MUSCULOSKELETAL: Normal ROM at all joints. No bony deformities or tenderness. No CVA tenderness. UPPER EXTREMITIES: 2+ pulses, warm, well-perfused. No cyanosis. Cap refill <2 seconds. No peripheral edema. LOWER EXTREMITIES: 2+ pulses, warm, well-perfused. No calf tenderness. No peripheral edema. NEUROLOGICAL: Normal speech, gait not observed. PSYCH: Cooperative. Good eye contact. Appropriate mood and affect. SKIN: Warm, dry, normal turgor, indurated left submental area w/drainage and ttp ; minimal erythema. Vital Signs Temperature 98.2 F 01/31/18 02:48 Pulse Rate 67 01/31/18 02:48 Respiratory Rate 17 01/31/18 02:57 Blood Pressure 121/68 01/31/18 02:48 O2 Sat by Pulse Oximetry (%) 98 01/31/18 02:57 Lab Results WBC 7.7 K/mm3 (4.0-10.0) 01/31/18 06:40 RBC 4.81 M/mm3 (3.60-5.2) 01/31/18 06:40 Hgb 13.2 GM/dL (10.7-15.3) 01/31/18 06:40 Hct 39.0 % (32.4-45.2) 01/31/18 06:40 MCV 81.2 fl (80-96) 01/31/18 06:40 MCHC 33.8 g/dl (32.0-36.0) 01/31/18 06:40 RDW 14.6 % (11.6-15.6) 01/31/18 06:40 Plt Count 178 K/MM3 (134-434) 01/31/18 06:40 Sodium 142 mmol/L (136-145) 01/31/18 06:40 Potassium 3.7 mmol/L (3.5-5.1) 01/31/18 06:40 Chloride 106 mmol/L (98-107) 01/31/18 06:40 Carbon Dioxide 25 mmol/L (21-32) 01/31/18 06:40 Anion Gap 10 MMOL/L (8-16) 01/31/18 06:40 BUN 8 mg/dL (7-18) 01/31/18 06:40 Creatinine 0.7 mg/dL (0.55-1.3) 01/31/18 06:40 Random Glucose 88 mg/dL (74-106) 01/31/18 06:40 Calcium 8.2 mg/dL (8.5-10.1) L 01/31/18 06:40 Blood Type B POSITIVE 01/31/18 06:40 Antibody Screen Negative 01/31/18 06:40 INR 1.24 (0.83-1.09) H 01/31/18 06:40 CT reviewed; w/u to date reviewed IMP:ABSSSI left submental area. PLAN: This will benefit from I and D an debridement in the OR; will schedule for 02/01/18; she was seen by ID and is receiving IVAB's; r/b/t/a's d/w the patient who understands the wound will be left open to heal by secondary intention. Buck Barron MD FACS
[2018-01-31] MEDS: CLINDAMYCIN HCL 150 MG CAPSULE (FP) PO SCH ×2 (12:41→17:39)
[2018-01-31] MEDS ORDERED: AMOX TR/POT CLAV 875MG/125MG TABLETS (FP) PO SCH (17:30)
[2018-02-01] MEDS ORDERED: PT OWN MED DRAWER 7, Y5N ONE (07:41)
[2018-02-01] MEDS ORDERED: DESFLURANE GAS 240 ML BOTTLE IH ONE (08:48)
[2018-02-01] MEDS ORDERED: fentaNYL CITRATE 250 MCG/5 ML VIAL ONE (08:50)
[2018-02-01] MEDS ORDERED: SUCCINYLCHOLINE CHLORIDE 200 MG/10 ML VIAL ONE (08:51)
[2018-02-01] MEDS ORDERED: PROPOFOL 20 ML ONE ×3 (08:51)
[2018-02-01] MEDS ORDERED: ROCURONIUM BROMIDE 50 MG/5 ML VIAL ONE (08:51)
[2018-02-01] MEDS ORDERED: LIDOCAINE HCL 2% 100 MG/5 ML DISP.SYRIN ONE (08:58)
--- NOTE | 2018-02-01 09:14 | PN ---
Teaching Attending Note Name of Resident: Eloy Felix ATTENDING PHYSICIAN STATEMENT I saw and evaluated the patient. I reviewed the resident's note and discussed the case with the resident. I agree with the resident's findings and plan as documented. SUBJECTIVE:abscess continues to drain yellow pustular fluid. pain is controlled. no reports of dysphagia. denies CP, SOB, fever, chills, N/V/C/D OBJECTIVE: Last Vital Signs Temp Pulse Resp BP Pulse Ox 98.2 F 61 20 128/61 99 02/01/18 05:00 02/01/18 05:00 02/01/18 05:00 02/01/18 05:00 02/01/18 00:00 General NAD HEENT L submental asbcess with +active yellow pustular drainage. significant area of induration surrounding it. tender ASSESSMENT AND PLAN: 42yo F with PMH of Asthma, Smoker, R-breast abscess (2016, grew EF, corynebacterium) presented to the ER with chin abscess for 2 days 1. Submental abscess- NPO for I&D in the OR today by surgery. abx switched to augmentin and clinda day2. spoke with surgeon who will also evaluate the breast. will need f/u cx pain control 2. Enlarged thyroid- TSH WNL. will need to have soft tissue u/s as outpatient and follow up with endocrine for further workup as outpatient. 3. fullness on swallowing- not painful. do not believe this is related to abscess as it preceded its formation. could be related to enlarged thyroid that needs to be further investigated as outpatient. if believed not to be related could benefit from esophogram for esophageal dysmotility issues 4. charts documents DM however A1c 6. counselled on weight loss with diet and exercise. should have A1c repeated in 3 months 5. asthma- stable 6. DVT ppx- EAM 7. spoke with present at bedside. all questions answered. verbalized understanding of plan.
[2018-02-01] MEDS ORDERED: GLYCOPYRROLATE 0.2 MG/1 ML VIAL ONE (09:39)
[2018-02-01] MEDS ORDERED: NEOSTIGMINE METHYLSULFATE 0.5 MG/ML - 10 ML MDV ONE (09:39)
--- NOTE | 2018-02-01 10:04 | OP ---
Operative Note - Note: Operative Date: 02/01/18 Pre-Operative Diagnosis: abscess of face/neck Operation: incision/drainage/debridement of facial abscess Findings: abscess/nonviable soft tissue/induration Surgeon: Buck Barron Anesthesiologist/[employer] MED[facility]: Melina Renee Anesthesia: General Specimens Removed: non viable tissue Estimated Blood Loss (mls): 5 Drains & Tubes with Location: / " iodoform packing
[2018-02-01] MEDS ORDERED: ACETAMINOPHEN INJECTION 100 ML IVPB ONE (10:16)
[2018-02-01] MEDS ORDERED: ONDANSETRON 4 MG/2 ML VIAL IVPUSH PRN (10:20)
[2018-02-01] MEDS ORDERED: ACETAMINOPHEN 1000 MG/100 ML VIAL (NON FORMULARY) IVPB ONE (10:21)
[2018-02-01] MEDS ORDERED: LACTATED RINGERS SOLUTION 1,000 ML IV SCH (10:30)
[2018-02-01] MEDS ORDERED: ACETAMINOPHEN 325 MG TABLET (FP) PO PRN (10:46)
[2018-02-01] MEDS ORDERED: oxyCODONE HCL 5 MG TABLET PO PRN (10:46)
--- NOTE | 2018-02-01 10:59 | PN ---
Progress Note, Physician History of Present Illness: stable post op from debridement - Current Medication List Current Medications: Active Medications Acetaminophen (Tylenol -) 325 mg PO Q4H PRN PRN Reason: PAIN LEVEL 6-10 Stop: 02/04/18 10:45 Amoxicillin/Clavulanate Potassium (Augmentin - 875mg Tablet) 1 tab PO BID@0800, 1730 DARINEL Clindamycin HCl (Cleocin -) 300 mg PO Q6HPO DARINEL Lactated Ringer's (Lactated Ringers Solution) 1,000 mls @ 125 mls/hr IV ASDIR DARINEL Ondansetron HCl (Zofran Injection) 4 mg IVPUSH Q6H PRN PRN Reason: NAUSEA AND/OR VOMITING Oxycodone HCl (Roxicodone -) 5 mg PO Q4H PRN PRN Reason: PAIN LEVEL 6-10 - Objective Vital Signs: Vital Signs Temperature 98.2 F 02/01/18 08:30 Pulse Rate 59 L 02/01/18 08:30 Respiratory Rate 17 02/01/18 08:30 Blood Pressure 106/49 L 02/01/18 08:30 O2 Sat by Pulse Oximetry (%) 99 02/01/18 00:00 Constitutional: Yes: No Distress, Calm Cardiovascular: Yes: Regular Rate and Rhythm Respiratory: Yes: Regular, CTA Bilaterally Gastrointestinal: Yes: Normal Bowel Sounds, Soft Musculoskeletal: Yes: WNL Extremities: Yes: WNL Integumentary: Yes: Other Wound/Incision: Yes: Dressing Dry and Intact Neurological: Yes: Alert, Oriented Psychiatric: Yes: Alert, Oriented Labs: CBC, BMP 01/31/18 06:40 01/31/18 06:40 INR, PTT INR 1.24 (0.83-1.09) H 01/31/18 06:40 Assessment/Plan abscess --face left sub mental region obesity h/o of breast abscess mrsa infection plan await finalization of cx once we have that will decide abx rest as per the team
--- NOTE | 2018-02-01 11:40 | PN ---
Physical Exam: SUBJECTIVE: Patient seen and examined at bedside. No acute distress. OBJECTIVE: Vital Signs Period Temp Pulse Resp BP Sys/Brooke Pulse Ox Last 24 Hr 97.7 F-98.8 F 57-76 16-28 106-132/49-80 98-100 GENERAL: A&Ox3, no acute distress EYES: PERRLA, EOMI ENT: Moist mucus membranes NECK: No JVD, small, tender white abscess noted on L side of submandibular region anteriorly LUNGS: CTA, no wheezes HEART: RRR, no murmurs ABDOMEN: Soft, nontender, BS present MUSCULOSKELETAL: No CVA Tenderness EXTREMITIES: 2+ pulses, no edema. NEUROLOGICAL: Cranial nerves II-XII intact. Active Medications Generic Name Dose Route Start Last Admin Trade Name Freq PRN Reason Stop Dose Admin Acetaminophen 325 mg 02/01/18 10:46 Tylenol - PO 02/04/18 10:45 Q4H PRN PAIN LEVEL 6-10 Amoxicillin/Clavulanate Potassium 1 tab 02/01/18 17:30 Augmentin - 875mg Tablet PO BID@0800,1730 DARINEL Clindamycin HCl 300 mg 02/01/18 12:00 Cleocin - PO Q6HPO DARINEL Lactated Ringer's 1,000 mls @ 125 mls/hr 02/01/18 10:30 02/01/18 10:20 Lactated Ringers Solution IV 200 mls ASDIR DARINEL Administration Ondansetron HCl 4 mg 02/01/18 10:20 Zofran Injection IVPUSH Q6H PRN NAUSEA AND/OR VOMITING Oxycodone HCl 5 mg 02/01/18 10:46 Roxicodone - PO Q4H PRN PAIN LEVEL 6-10 ASSESSMENT/PLAN: 42 year old female admitted for tx of submandibular abscess/facial cellulitis #Submandibular Abscess: s/p I&D this Am -on augmentin/clindamycin day 2 -f/u cultures of abscess, blood -ID consulted Dr. Lerner #Thyromegaly: will need outpt evaluation #FEN -no standing fluids -regular diet -lytes wnl #Prophylaxis -SCDs #Disposition -admit med-surg Visit type - Emergency Visit Emergency Visit: No - New Patient This patient is new to me today: Yes Date on this admission: 02/01/18 - Critical Care Critical Care patient: No
[2018-02-01] MEDS: CLINDAMYCIN HCL 150 MG CAPSULE (FP) PO SCH ×3 (12:44→17:59)
[2018-02-01] MEDS ORDERED: methylPREDNISolone NA SUCC 125 MG/2 ML VIAL IVPUSH ONE (14:42)
[2018-02-01] MEDS ORDERED: FAMOTIDINE 20 MG/50 ML IVPB 20 MG/50 ML MG IVPB ONE (14:44)
[2018-02-01] MEDS ORDERED: EPINEPHrine 1:1,000 - 30 MG/30 ML VIAL IM ONE (15:01)
[2018-02-01] MEDS: AMOX TR/POT CLAV 875MG/125MG TABLETS (FP) PO SCH (17:59)
--- NOTE | 2018-02-01 21:53 | OP ---
DATE OF OPERATION: 02/01/2018 PREOPERATIVE DIAGNOSIS: Soft tissue abscess of the left face/neck. POSTOPERATIVE DIAGNOSIS: Soft tissue abscess of the left face/neck. PROCEDURE: Incision, drainage, and debridement of soft tissue abscess. SURGEON: Buck Barron MD ANESTHESIA: General. OPERATIVE FINDINGS: There was a soft tissue abscess involving the left submental area and upper neck with marked induration, purulent discharge, and nonviable tissue. The rest of the findings were unremarkable. PROCEDURE: The patient was placed on the operating table in the supine position. After the induction of general anesthesia, the patient's face and the area of concern was prepped with Betadine and draped in a sterile fashion. A timeout was taken and incision was made with a scalpel and taken down through the skin and subcutaneous tissue. All loculations were broken up using blunt dissection and nonviable tissue sharply debrided using a scalpel and sent for pathological examination. Purulent drainage was sent for culture and sensitivity to Microbiology. Copious irrigation was carried out with saline and peroxide in a 50-50 mix. Hemostasis was secured with electrocautery. The wound was packed with quarter-inch iodoform gauze followed by dry sterile dressings and Tegaderm. The patient then aroused from general anesthesia and transferred to the postanesthesia care unit in stable condition, awake and alert. ESTIMATED BLOOD LOSS: 5 mL. REPLACEMENT: Crystalloid. DRAINS: Quarter-inch iodoform packing. SPECIMEN: Culture and sensitivity to Microbiology and nonviable tissue to Pathology. I, Buck Barron, was physically present in the operating room from the time the patient was placed on the operating table until she was transferred to the postanesthesia care unit in my accompaniment. MD RENAE Coreas/[id number] MTDD
[2018-02-02] MEDS: CLINDAMYCIN HCL 150 MG CAPSULE (FP) PO SCH ×2 (00:32→06:32)
[2018-02-02] MEDS: AMOX TR/POT CLAV 875MG/125MG TABLETS (FP) PO SCH (09:59)
--- NOTE | 2018-02-02 11:15 | PN ---
Progress Note (short form) - Note Progress Note: Attending Surgeon POD#1 No c/o VSS AF wound-open and well drained; no discharge; induration resolving c/s-presumptive MRSA IMP: doing well PLAN: LWC rendered; instructed on same; office f/u Friday02/04/18. Buck Barron MD FACS
--- NOTE | 2018-02-02 11:41 | PN ---
Progress Note, Physician History of Present Illness: patient stable no new issues wound debrided dressing dry intact - Current Medication List Current Medications: Active Medications Acetaminophen (Tylenol -) 325 mg PO Q4H PRN PRN Reason: PAIN LEVEL 6-10 Stop: 02/04/18 10:45 Amoxicillin/Clavulanate Potassium (Augmentin - 875mg Tablet) 1 tab PO BID@0800, 1730 [facility] Last Admin: 02/02/18 09:59 Dose: 1 tab Lactated Ringer's (Lactated Ringers Solution) 1,000 mls @ 125 mls/hr IV ASDIR [facility] Last Admin: 02/01/18 10:20 Dose: 200 mls Ondansetron HCl (Zofran Injection) 4 mg IVPUSH Q6H PRN PRN Reason: NAUSEA AND/OR VOMITING Oxycodone HCl (Roxicodone -) 5 mg PO Q4H PRN PRN Reason: PAIN LEVEL 6-10 - Objective Vital Signs: Vital Signs Temperature 97.9 F 02/02/18 09:55 Pulse Rate 73 02/02/18 09:55 Respiratory Rate 17 02/02/18 09:55 Blood Pressure 146/78 02/02/18 09:55 O2 Sat by Pulse Oximetry (%) 99 02/01/18 11:20 Constitutional: Yes: No Distress, Calm Cardiovascular: Yes: Regular Rate and Rhythm Respiratory: Yes: Regular, CTA Bilaterally Gastrointestinal: Yes: Normal Bowel Sounds, Soft Musculoskeletal: Yes: WNL Extremities: Yes: WNL Neurological: Yes: Alert, Oriented Psychiatric: Yes: Alert, Oriented Labs: CBC, BMP 01/31/18 06:40 01/31/18 06:40 INR, PTT INR 1.24 (0.83-1.09) H 01/31/18 06:40 Assessment/Plan abscess --face left sub mental region obesity h/o of breast abscess mrsa infection plan await finalization of cx changed abx to doxy will await the final sensitivities of the organisms wound care
--- NOTE | 2018-02-02 13:03 | PN ---
Progress Note, Physician Chief Complaint: day 1 s/p I and D of submental abscess - Current Medication List Current Medications: Active Medications Acetaminophen (Tylenol -) 325 mg PO Q4H PRN PRN Reason: PAIN LEVEL 6-10 Stop: 02/04/18 10:45 Doxycycline Hyclate (Vibramycin -) 100 mg PO BID@1000,1800 DARINEL Lactated Ringer's (Lactated Ringers Solution) 1,000 mls @ 125 mls/hr IV ASDIR DARINEL Last Admin: 02/01/18 10:20 Dose: 200 mls Ondansetron HCl (Zofran Injection) 4 mg IVPUSH Q6H PRN PRN Reason: NAUSEA AND/OR VOMITING Oxycodone HCl (Roxicodone -) 5 mg PO Q4H PRN PRN Reason: PAIN LEVEL 6-10 - Objective Vital Signs: Vital Signs Temperature 97.9 F 02/02/18 09:55 Pulse Rate 73 02/02/18 09:55 Respiratory Rate 17 02/02/18 09:55 Blood Pressure 146/78 02/02/18 09:55 O2 Sat by Pulse Oximetry (%) 99 02/02/18 09:00 Labs: CBC, BMP 01/31/18 06:40 01/31/18 06:40 INR, PTT INR 1.24 (0.83-1.09) H 01/31/18 06:40 Assessment/Plan No anesthetic issues/complications. Doing well with no complaints
--- NOTE | 2018-02-02 14:30 | PN ---
Physical Exam: SUBJECTIVE: Patient seen and examined at bedside. Pt had an episode of difficulty breathing and throat swelling. Epinephrne, diphenhydramine, steroids and pepcid.. POD#1 I and D incision/drainage/debridement of facial abscess. OBJECTIVE: Vital Signs Period Temp Pulse Resp BP Sys/Brooke Pulse Ox Last 24 Hr 97.9 F-98.5 F 55-73 17-20 115-146/56-78 99 GENERAL: AAOx3 NAD HEAD: NC/AT EYES: EOMI PERRLA No Scleral icterus ENT: Ears normal, nares patent, oropharynx clear without exudates, moist mucous membranes. NECK: THYROMEGALY. Consider tsh? LUNGS: CTA B/L HEART: RRR No MRG S1 S2 ABDOMEN: Soft NDNT No HSM EXTREMITIES: No CCE NEUROLOGICAL: Cranial nerves II through XII grossly intact. Normal speech, gait not observed. PSYCH: Normal mood, normal affect. SKIN: Abscess chin s/p I and d Active Medications Generic Name Dose Route Start Last Admin Trade Name Freq PRN Reason Stop Dose Admin Acetaminophen 325 mg 02/01/18 10:46 Tylenol - PO 02/04/18 10:45 Q4H PRN PAIN LEVEL 6-10 Doxycycline Hyclate 100 mg 02/02/18 18:00 Vibramycin - PO BID@1000,1800 DARINEL Lactated Ringer's 1,000 mls @ 125 mls/hr 02/01/18 10:30 02/01/18 10:20 Lactated Ringers Solution IV 200 mls ASDIR DARINEL Administration Ondansetron HCl 4 mg 02/01/18 10:20 Zofran Injection IVPUSH Q6H PRN NAUSEA AND/OR VOMITING Oxycodone HCl 5 mg 02/01/18 10:46 Roxicodone - PO Q4H PRN PAIN LEVEL 6-10 ASSESSMENT/PLAN:
--- NOTE | 2018-02-02 14:48 | PN ---
Teaching Attending Note Name of Resident: Avi Robertson ATTENDING PHYSICIAN STATEMENT I saw and evaluated the patient. I reviewed the resident's note and discussed the case with the resident. I agree with the resident's findings and plan as documented. SUBJECTIVE:asymptomatic. no recurrent episodes of throat closing or itchying of the tongue and throat. tolerated breakfast without difficulty. denies Cp, SOB, fever, chills, N/V/C/D no wheezing/stridor. perioral/tongue swelling or numbness OBJECTIVE: Last Vital Signs Temp Pulse Resp BP Pulse Ox 97.9 F 73 17 146/78 99 02/02/18 09:55 02/02/18 09:55 02/02/18 09:55 02/02/18 09:55 02/02/18 09:00 General NAD HEENT L submental bandage c/d/i, area is mildly tender no induration appreciated ASSESSMENT AND PLAN: 42yo F with PMH of Asthma, Smoker, R-breast abscess (2015, grew EF, corynebacterium) presented to the ER with chin abscess for 2 days 1. Submental abscess-+MRSA. s/p I&D 02/01. abx switched to doxy based on sensitivities. will f/u with surgeon in office this week. 2. anaphylaxis- has known anaphylaxis to shellfish. ate salmon yesterday which she does not typically have reaction to. was given epi/medrol/benadry/pepcid. with relief. no recurrent symptoms. educated to avoid all seafood at this time. 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 will give epipen on discharge 2. Enlarged thyroid- TSH WNL. will need to have soft tissue u/s as outpatient and follow up with endocrine for further workup as outpatient. 3. fullness on swallowing- not painful. do not believe this is related to abscess as it preceded its formation. could be related to enlarged thyroid that needs to be further investigated as outpatient. if believed not to be related could benefit from esophogram for esophageal dysmotility issues 4. charts documents DM however A1c 6. counselled on weight loss with diet and exercise. should have A1c repeated in 3 months 5. asthma- stable 6. DVT ppx- EAM 7. d/c home today pending official report of Cx
[2018-02-02 17:06] VITALS: BP 126/74; PULSE 74; TEMP 97.6
--- NOTE | 2018-02-02 17:47 | DS ---
Physical Exam: SUBJECTIVE: Patient seen and examined at bedside. Pt had an episode of difficulty breathing and throat swellingyesterday afternoon. Epinephrne, diphenhydramine, steroids and pepcid were administered with relief. POD#1 I and D incision/drainage/debridement of facial abscess. OBJECTIVE: Vital Signs Period Temp Pulse Resp BP Sys/Brooke Pulse Ox Last 24 Hr 97.6 F-98.3 F 55-74 17-20 115-146/58-78 99 PHYSICAL EXAM GENERAL: AAOx3 NAD HEAD: NC/AT EYES: EOMI PERRLA No Scleral icterus ENT: Ears normal, nares patent, oropharynx clear without exudates, moist mucous membranes. NECK: THYROMEGALY. LUNGS: CTA B/L HEART: RRR No MRG S1 S2 ABDOMEN: Soft NDNT No HSM EXTREMITIES: No CCE NEUROLOGICAL: Cranial nerves II through XII grossly intact. Normal speech, gait not observed. PSYCH: Normal mood, normal affect. SKIN: Abscess chin s/p I and d LABS HOSPITAL COURSE: Date of Admission:02/01/18 Pt presented to [facility] ED on 01/30/18 c/o an abscess on her chin for 2 days duration. Initial abscess cultures grew MRSA. Pt was initially started on Vancomycin but then was switched to clindamycin and Augmentin. Pt underwent an incision/drainage/debridement of the facial abscess with Dr Lilli Barron on . Later the same day of the surgery, pt experienced an anaphylactic reaction after she consumed salmon for lunch. Pt was administered Epinephrine, Solumedrol , diphenhydramine and pepcid. Pt's ABx were ultimately switched to Doxycycline per I.D Pt was discharged home on 14 days of doxycycline as well as a 2 pack of epinephrine pens. A second culture was sent yesterday and official results are not back yet. We will call pt tomorrow when the sensitivities are finalized. Pt provided following phone number: [phone]. Date of Discharge: 02/02/18 Minutes to complete discharge: 35 Discharge Summary Reason For Visit: ABSCESS OF NECK Current Active Problems Neck abscess (Acute) Condition: Improved - Instructions Diet, Activity, Other Instructions: Your abscess cultures grew MRSA, a very resistant bacteria. You will need to be on 14 days of an antibiotic called doxycycline. This medication has been sent to your pharmacy. A second culture was sent yesterday and official results are not back yet. We will call you tomorrow if you will need to change antibiotics. If you are not contacted, take your medication until finished, even if your symptoms resolve. In light of your allergic reaction in the hospital, we would like you to have an epi pen at your disposal at all times. If you feel the onset of your throat closing, numbness or swelling of your lips or tongue or experience sudden difficulty breath as you did while you were in the hospital, please use your epi pen immediately and call 911 immediately. Please follow up with your primary care physician regarding allergy testing this week Please follow up with your primary care physician this week regarding the enlarged thyroid gland that was observed on imaging here in the hospital. You will need an ultrasound to further assess this. Your diabetic number (a1c) was slightly high here, we recommend following a low sugar diet, avoid carbs and exercise. You should have this number repeated in 3 months, if it remains elevated you may need to start medications. Our hospitalist team will call you as soon as the sensitivities of your second wound abscess culture are finalized. You have provided the following number for us to contact you at: [phone]. Dr. Barron Discharge Instructions Dear SHERRY CANNON, Post Operative Instructions Physical activity Resume your normal everyday activity as tolerated no heavy lifting or exercise until seen by your surgeon. You may walk unlimited amounts of and climb stairs. You may resume driving the car when you feel safe and comfortable behind the wheel. Wound care If you have a bandage, leave it on, and keep dry, you may shower but keep dressing covered and dry. Diet There are no dietary restrictions. Eat healthy, high-fiber foods. Drink 6 to 8 glasses of liquid each day. This will assist in keeping your bowels are regular. Pain management You may take Tylenol or acetaminophen or Ibuprofen (for example, Motrin, Advil etc.) Any pain prescription medication ordered should be taken as prescribed for moderate to severe pain. Call Dr. Barron for any of the following: Severe pain not relieved by medication Fever of 101 or higher Excessive bleeding or drainage on dressing Call the office at [phone] for a post operative appointment on Friday Referrals: Buck Barron MD [Staff Physician] - Jerson Lowery MD [Primary Care Provider] - Disposition: HOME - Home Medications Comprehensive Discharge Medication List: Ambulatory Orders Albuterol Sulfate [Proventil HFA Inhaler -] 1 - 2 inh PO QID PRN 01/30/18 Doxycycline Hyclate 100 mg PO BID #28 tablet 02/02/18 Epinephrine [Epipen 2-Joey] 0.3 mg IJ ASDIR #1 kit 02/02/18 This patient is new to me today: Yes Date on this admission: 02/02/18 Emergency Visit: Yes ED Registration Date: 02/01/18 Care time: The patient presented to the Emergency Department on the above date and was hospitalized for further evaluation of their emergent condition. Critical Care patient: No - Discharge Referral Referred to [facility] Med P.C.: No
[2018-02-02] MEDS ORDERED: DOXYCYCLINE HYCLATE 100 MG CAPSULE PO SCH (18:00)
--- NOTE | 2018-02-03 17:35 | PATH ---
Surgical Pathology Report Patient Name: SHERRY CANNON Med. Rec. #: [id number] /Age/Gender: 1975 (Age: 42) / F Account: [id number] Location: [facility] MED/SURG Taken: 02/01/2018 Received: 02/02/2018 Reported: 02/03/2018 Physicians: MD Jackie Waters M.D. Specimen(s) Received DEBRIDED ABSCESS TISSUE Clinical History Abscess face Final Diagnosis CHIN, TISSUE, DEBRIDEMENT: FIBROADIPOSE TISSUE WITH ACUTE INFLAMMATORY EXUDATE CONSISTENT WITH ABSCESS. Electronically Signed Graciela Huang M.D. Gross Description Received in formalin labeled "debrided tissue of chin," are 2 ruiz soft tissue fragments measuring 0.3 and 0.7 cm in greatest dimension. The specimens are submitted in toto in one cassette. 02/02/201802/02/2018
== END 2018-02-02 18:46 | disposition home or self-care (01) | DRG 571 ==
LOC: JER 15:32 → JERBED 21:46 → J8W 01-31 02:45 → OBSVTOIN 02-01 07:49 → J8W 02-01 16:00
PROVIDERS: ADMIT Internal Medicine; ATTEND Internal Medicine
PROC: 0JB50ZZ Excision of Left Neck Subcutaneous Tissue and Fascia, Open Approach (ICD-10-PCS; 2018-02-01)
PROC: 0J950ZX Drainage of Left Neck Subcutaneous Tissue and Fascia, Open Approach, Diagnostic (ICD-10-PCS; principal; 2018-02-01 09:00)
DX: L02.11 Cutaneous abscess of neck (principal); L02.01 Cutaneous abscess of face; L03.211 Cellulitis of face; K12.2 Cellulitis and abscess of mouth; T78.09XA Anaphylactic reaction due to other food products, initial encounter; B95.62 Methicillin resistant Staphylococcus aureus infection as the cause of diseases classified elsewhere; J45.909 Unspecified asthma, uncomplicated; F17.210 Nicotine dependence, cigarettes, uncomplicated; E04.9 Nontoxic goiter, unspecified; E11.9 Type 2 diabetes mellitus without complications; R13.10 Dysphagia, unspecified; E66.9 Obesity, unspecified; Z68.35 Body mass index [BMI] 35.0-35.9, adult; Z91.013 Allergy to seafood
CPT/HCPCS: 36415; 70491-TC; 80053; 82962; 83036; 83735; 84100; 84443; 84703; 85025; 85610; 85651; 85730; 86140; 86850; 86900; 86901; 87040; 87070; 87186; 87205; 88304-TC; 94760; 99285-25; G0378; J0131

== ENCOUNTER 2019-02-06 21:35 | Emergency (ER) | payer SELFPAY ==
[2019-02-06 22:05] VITALS: TEMP 97.8; BMI 32.5
--- NOTE | 2019-02-06 22:34 | PDOC ---
History of Present Illness - General Chief Complaint: Chest Pain Stated Complaint: CHEST DISCOMFORT History Source: Patient Exam Limitations: No Limitations - History of Present Illness Initial Comments: 02/06/19 22:22 Patient is a 43 year old female with h/o asthma last hospitalization in the teens, smoker 3 cig/day c/o chest pain on the left side since yesterday morning assoc with tingling in the left arm intermittent, started about 3 am Friday morning. She was awake and walking in her kitchen had sudden onset of sharp pain x 2-4 mins. States she had to hold her chest but pain completely resolved and had not return since 3 am yesterday. States she is concern that she got this pain and wonders why it happened but did not come immediately because she had to go to work. She is now here in the ED for eval because she noticed a swelling to her left chest. FamHx neg for CVA/LA/PE/DVT. No OCP, NO recent travel. LMP yesterday PMD: Dr. Jerson [place] PMHX: as above PSOCHX: neg drug, occ etoh, (+) cig 3/day ALL: iodine hives Review of Systems: GENERAL/CONSTITUTIONAL: No fever or chills. No weakness. No weight change. HEAD, EYES, EARS, NOSE AND THROAT: No change in vision. No ear pain or discharge. No sore throat. CARDIOVASCULAR: No chest pain or shortness of breath. RESPIRATORY: No cough, wheezing, or hemoptysis. GASTROINTESTINAL: No nausea, vomiting, diarrhea or constipation. No rectal bleeding. GENITOURINARY: No dysuria, frequency, or change in urination. MUSCULOSKELETAL: No joint or muscle swelling or pain. No neck or back pain. SKIN AND BREASTS: No rash or easy bruising. NEUROLOGIC: No headache, vertigo, loss of consciousness, or loss of sensation. PSYCHIATRIC: No depression or anxiety. ENDOCRINE: No increased thirst. No abnormal weight change. HEMATOLOGIC/LYMPHATIC: No anemia, easy bleeding, or history of blood clots. ALLERGIC/IMMUNOLOGIC: No hives or skin allergy. No latex allergy. GENERAL: [The patient is awake, alert, and fully oriented, in no acute distress. ] HEAD: [Normal with no signs of trauma.] EYES: [Pupils equal, round and reactive to light, extraocular movements intact, sclera anicteric, conjunctiva clear.] ENT: [Ears normal, nares patent, oropharynx clear without exudates. Moist mucous membranes.] NECK: [Normal range of motion, supple without lymphadenopathy, JVD, or masses.] LUNGS: [Breath sounds equal, clear to auscultation bilaterally. No wheezes, and no crackles.] HEART: [Regular rate and rhythm, normal S1 and S2 without murmur, rub.] ABDOMEN: [Soft, nontender, normoactive bowel sounds. No guarding, no rebound. No masses.] EXTREMITIES: [Normal range of motion, no edema. No clubbing or cyanosis. No cords, erythema, or tenderness.] NEUROLOGICAL: [Cranial nerves II through XII grossly intact. Normal speech, normal gait.] PSYCH: [Normal mood, normal affect.] SKIN: [Fat pad to the left chest nontender warm, Dry, normal turgor, no rashes or lesions noted.] Past History - Past Medical History Allergies/Adverse Reactions: Allergies Allergy/AdvReac Type Severity Reaction Status Date / Time iodine [Iodine] Allergy Verified 02/06/19 22:05 shellfish derived Allergy Verified 02/06/19 22:05 seafood Allergy Intermediate Itching Uncoded 02/06/19 22:05 Home Medications: Ambulatory Orders Albuterol Sulfate [Proventil HFA Inhaler -] 1 - 2 inh PO QID PRN 01/30/18 Doxycycline Hyclate 100 mg PO BID #28 tablet 02/02/18 Epinephrine [Epipen 2-Joey] 0.3 mg IJ ASDIR #1 kit 02/02/18 Asthma: Yes COPD: No - Surgical History Cholecystectomy: Yes - Reproductive History Dysfunctional Uterine Bleeding: No Ectopic : No Polycystic Ovaries: No - Immunization History Immunization Up to Date: Yes - Psycho Social/Smoking Cessation Hx Smoking Status: No Smoking History: Never smoked Have you smoked in the past 12 months: No Number of Cigarettes Smoked Daily: 10 Information on smoking cessation initiated: No 'Breaking Loose' booklet given: 04/22/17 Hx Alcohol Use: No Drug/Substance Use Hx: No Substance Use Type: None Hx Substance Use Treatment: No *Physical Exam - Vital Signs Last Vital Signs Temp Pulse Resp BP Pulse Ox 97.8 F 75 17 136/84 98 02/06/19 21:35 02/06/19 21:35 02/06/19 21:35 02/06/19 21:35 02/06/19 21:35 ED Treatment Course - RADIOLOGY Radiology Studies Ordered: Category Date Time Status CHEST PA & LAT [RAD] Stat Radiology 02/06/19 22:34 Taken Medical Decision Making - Medical Decision Making 02/06/19 22:22 Patient is a 43 year old female with h/o asthma last hospitalization in the teens, smoker 3 cig/day c/o chest pain on the left side since yesterday morning assoc with tingling in the left arm intermittent, started about 3 am Friday morning. She was awake and walking in her kitchen had sudden onset of sharp pain x 2-4 mins. States she had to hold her chest but pain completely resolved and had not return since 3 am yesterday. States she is concern that she got this pain and wonders why it happened but did not come immediately because she had to go to work. She is now here in the ED for eval because she noticed a swelling to her left chest. FamHx neg for CVA/LA/PE/DVT. No OCP, NO recent travel. LMP yesterday Patient has symptoms which are not consistent with ACS. She is PERC negative. Has a fat pad to her left chest on exam. EKG Chest x-ray Reassess Patient remained symptom-free EKG: Sinus rhythm at 76, NAD, no ST-T wave changes Chest x-ray no acute infiltrates. I discussed the physical exam findings, ancillary test results and final diagnoses with the patient. I answered all of the patient's questions. The patient was satisfied with the care received and felt comfortable with the discharge plan and treatment plan. The Patient agrees to follow up with the primary care physician within 24-72 hours. Discharge - Discharge Information Problems reviewed: Yes Clinical Impression/Diagnosis: Chest pain, non-cardiac Condition: Stable Disposition: HOME - Follow up/Referral - Patient Discharge Instructions Patient Printed Discharge Instructions: DI for Atypical Chest Pain Additional Instructions: Your Discharge Instructions: You must call primary care physician within 24 hours to arrange follow-up. Return to the Emergency Department with any new, persistent or worsening symptoms, for fever, chills, SOB, dizziness or any other concerning changes that may occur. - Post Discharge Activity
[2019-02-06 23:32] VITALS: BP 130/72; PULSE 72
--- NOTE | 2019-02-09 11:24 | EKG ---
Test Reason : Blood Pressure : / mmHG Vent. Rate : 076 BPM Atrial Rate : 076 BPM P-R Int : 148 ms QRS Dur : 072 ms QT Int : 394 ms P-R-T Axes : 058 051 018 degrees QTc Int : 443 ms NORMAL SINUS RHYTHM WITH SINUS ARRHYTHMIA POSSIBLE LEFT ATRIAL ENLARGEMENT BORDERLINE ECG NO PREVIOUS ECGS AVAILABLE Confirmed by MD Donaldo, Hemanth ([id number]) on 02/09/2019 11:23:57 AM Referred By: Confirmed By:Hemanth Fulton MD
== END 2019-02-06 23:29 | disposition home or self-care (01) ==
LOC: JER 21:35
DX: R07.9 Chest pain, unspecified (principal); J45.909 Unspecified asthma, uncomplicated; Z91.013 Allergy to seafood; Z88.8 Allergy status to other drugs, medicaments and biological substances
CPT/HCPCS: 71046-TC-FY; 93005; 93010; 99282-25

== ENCOUNTER 2020-06-03 13:44 | Emergency (ER) | payer OTHER ==
[2020-06-03 14:01] VITALS: BP 133/89; PULSE 85; TEMP 98.2; BMI 31.7
[2020-06-03] MEDS ORDERED: ACETAMINOPHEN 325 MG TABLET (FP) PO ONE (14:41)
== END 2020-06-03 14:46 | disposition home or self-care (01) ==
LOC: JER 13:44
DX: Z11.52 Encounter for screening for COVID-19 (principal); M79.10 Myalgia, unspecified site; R50.9 Fever, unspecified; R05 Cough
CPT/HCPCS: 99284-25; C9803; U0003

== ENCOUNTER 2020-07-17 01:14 | Emergency (ER) | payer OTHER | END 2020-07-17 01:20 | disposition left against medical advice (07) | LOC: JER 01:14 | DX: T78.40XA Allergy, unspecified, initial encounter (principal) ==

== ENCOUNTER 2021-06-03 21:19 | Emergency (ER) | payer OTHER ==
[2021-06-03 21:37] VITALS: TEMP 99.3; BMI 25.7
[2021-06-03] MEDS ORDERED: ACETAMINOPHEN 500 MG TABLET (FP) PO ONE (23:17)
[2021-06-03] MEDS ORDERED: ACETAMINOPHEN 325 MG TABLET (FP) ONE (23:26)
[2021-06-04 00:19] VITALS: BP 136/90; PULSE 82
[2021-06-05 13:07] LABS: SARS-CoV-2 NAA Not Detected (Not Detected)
== END 2021-06-04 00:19 | disposition home or self-care (01) ==
LOC: JER 21:19
DX: R53.83 Other fatigue (principal); M79.10 Myalgia, unspecified site
CPT/HCPCS: 87804; 93005; 93010; 99284-25; C9803; U0003; U0005

== ENCOUNTER 2022-07-24 19:34 | Emergency (ER) | payer OTHER ==
[2022-07-24 19:56] VITALS: BP 142/92; PULSE 91; RESP 18; TEMP 98.7; BMI 34.4
[2022-07-24] MEDS ORDERED: DEXAMETHASONE SOD PHOSPHATE 10 MG/1 ML VIAL IM ONE (21:34)
[2022-07-24] MEDS ORDERED: DEXAMETHASONE SOD PHOSPHATE 10 MG/1 ML VIAL ONE (21:36)
[2022-07-24 21:56] LABS: EPI CELLS >36 /uL (0-25.1); HYALINE CASTS 0 /uL (0-3.1); PH,URINE 6.5 (5.0-8.0); URINE APPEARANCE CLEAR; URINE BACTERIA 342 /uL (0-1359); URINE BILIRUBIN NEGATIVE (NEGATIVE); URINE COLOR YELLOW; URINE GLUCOSE (UA) NEGATIVE (NEGATIVE); URINE KETONE NEGATIVE (NEGATIVE); URINE LEUK ESTERASE NEGATIVE (NEGATIVE); URINE NITRITE NEGATIVE (NEGATIVE); URINE PROTEIN 1+ (NEGATIVE); URINE RBC 26 /uL (0-23.9); URINE UROBILINOGEN 0.2 mg/dL (0.2-1.0); URINE WBC 6 /uL (0-25.8)
== END 2022-07-24 22:27 | disposition home or self-care (01) ==
LOC: JER 19:34 → JERFT 19:34
PROC: 3E023GC Introduction of Other Therapeutic Substance into Muscle, Percutaneous Approach (ICD-10-PCS; principal; 2022-07-24)
DX: M54.50 Low back pain, unspecified (principal); R05.9 Cough, unspecified; R51.9 Headache, unspecified; R09.81 Nasal congestion; R68.83 Chills (without fever); R35.0 Frequency of micturition; Z20.822 Contact with and (suspected) exposure to COVID-19
CPT/HCPCS: 0241U-QW; 81003; 87086; 99284-25; J1100